=== PATIENT | male | born 1945 | race Caucasian/White ===

== ENCOUNTER 2022-04-13 16:20 | Inpatient (IN) | payer MEDICARE, OTHER ==
[2022-04-13 20:18] VITALS: BMI 39.6
[2022-04-13] MEDS ORDERED: Acetaminophen 325 MG Suppository PR PRN (20:29)
[2022-04-13] MEDS ORDERED: Ondansetron ODT 4 MG TAB SL PRN (20:30)
[2022-04-13] MEDS ORDERED: Ondansetron PF 4 MG/2 ML Vial IVP PRN (20:30)
[2022-04-13] MEDS ORDERED: Calcium Carbonate 500 MG ChewTAB PO PRN (20:31)
[2022-04-13] MEDS ORDERED: Loperamide HCl 2 MG CAP PO PRN ×2 (20:53)
[2022-04-13] MEDS ORDERED: Guaifenesin DM 100-10/5 ML UDCUP PO PRN (20:54)
[2022-04-13] MEDS ORDERED: Bisacodyl 10 MG SUPP PR PRN (20:54)
[2022-04-13] MEDS: Famotidine 20 MG TAB PO SCH (21:58)
[2022-04-13] MEDS: HYDROcodone/Acetaminophen 5/325 mg Tablet PO PRN (22:10)
[2022-04-14] MEDS: Levothyroxine Sodium 50 MCG TAB PO SCH (05:17)
[2022-04-14 06:18] LABS: SARS-CoV-2 NAA Rapid Test Not Detected (NotDetected)
[2022-04-14] MEDS: Enoxaparin Sodium 40 MG/0.4 ML SYRINGE SC SCH (08:49)
[2022-04-14] MEDS: Lisinopril 20 MG TAB PO SCH (08:50)
[2022-04-14] MEDS: Multivitamin W/ Minerals 1 TAB PO SCH (08:50)
[2022-04-14] MEDS: Ascorbic Acid 500 mg Chewable Tablet PO SCH (08:51)
[2022-04-14] MEDS: Amlodipine 10 MG TAB PO SCH (08:51)
[2022-04-14] MEDS: Famotidine 20 MG TAB PO SCH ×2 (08:51→20:58)
[2022-04-14] MEDS ORDERED: FLU VACC QS2022-23(65YR UP)/PF 240 MCG/0.7 ML SYRINGE IM ONE (09:00)
[2022-04-14] MEDS ORDERED: Cholecalciferol 1,000 UNITS (25 MCG) TAB PO SCH (09:00)
[2022-04-14] MEDS: HYDROcodone/Acetaminophen 5/325 mg Tablet PO PRN (10:03)
[2022-04-15] MEDS: Levothyroxine Sodium 50 MCG TAB PO SCH (05:32)
[2022-04-15] MEDS: Enoxaparin Sodium 40 MG/0.4 ML SYRINGE SC SCH (08:56)
[2022-04-15] MEDS: Ascorbic Acid 500 mg Chewable Tablet PO SCH (08:56)
[2022-04-15] MEDS: Multivitamin W/ Minerals 1 TAB PO SCH (08:56)
[2022-04-15] MEDS: Amlodipine 10 MG TAB PO SCH (08:56)
[2022-04-15] MEDS: Lisinopril 20 MG TAB PO SCH (08:57)
[2022-04-15] MEDS: Famotidine 20 MG TAB PO SCH ×2 (08:57→20:20)
[2022-04-15] MEDS: Cholecalciferol (Vitamin D3) 5,000 UNITS CAPSULE PO SCH (09:00)
[2022-04-15] MEDS: HYDROcodone/Acetaminophen 5/325 mg Tablet PO PRN ×2 (09:32→14:44)
[2022-04-16] MEDS: HYDROcodone/Acetaminophen 5/325 mg Tablet PO PRN ×3 (02:28→22:40)
[2022-04-16] MEDS: Levothyroxine Sodium 50 MCG TAB PO SCH (05:43)
[2022-04-16] MEDS: Enoxaparin Sodium 40 MG/0.4 ML SYRINGE SC SCH (08:45)
[2022-04-16] MEDS: Multivitamin W/ Minerals 1 TAB PO SCH (08:46)
[2022-04-16] MEDS: Amlodipine 10 MG TAB PO SCH (08:46)
[2022-04-16] MEDS: Lisinopril 20 MG TAB PO SCH (08:47)
[2022-04-16] MEDS: Famotidine 20 MG TAB PO SCH ×2 (08:47→20:19)
[2022-04-16] MEDS: Ascorbic Acid 500 mg Chewable Tablet PO SCH (08:47)
[2022-04-16] MEDS: Cholecalciferol (Vitamin D3) 5,000 UNITS CAPSULE PO SCH (08:48)
[2022-04-17] MEDS: Levothyroxine Sodium 50 MCG TAB PO SCH (05:32)
[2022-04-17] MEDS: Enoxaparin Sodium 40 MG/0.4 ML SYRINGE SC SCH (08:42)
[2022-04-17] MEDS: Lisinopril 20 MG TAB PO SCH (08:42)
[2022-04-17] MEDS: Amlodipine 10 MG TAB PO SCH (08:43)
[2022-04-17] MEDS: Famotidine 20 MG TAB PO SCH ×2 (08:43→19:51)
[2022-04-17] MEDS: Ascorbic Acid 500 mg Chewable Tablet PO SCH (08:44)
[2022-04-17] MEDS: Cholecalciferol (Vitamin D3) 5,000 UNITS CAPSULE PO SCH (08:44)
[2022-04-17] MEDS: Multivitamin W/ Minerals 1 TAB PO SCH (08:44)
[2022-04-17] MEDS: Senokot S 8.6-50 MG TAB PO PRN (08:59)
[2022-04-17] MEDS: HYDROcodone/Acetaminophen 5/325 mg Tablet PO PRN (19:56)
[2022-04-18] MEDS: Levothyroxine Sodium 50 MCG TAB PO SCH (04:44)
[2022-04-18] MEDS: Multivitamin W/ Minerals 1 TAB PO SCH (08:42)
[2022-04-18] MEDS: Amlodipine 10 MG TAB PO SCH (08:43)
[2022-04-18] MEDS: Cholecalciferol (Vitamin D3) 5,000 UNITS CAPSULE PO SCH (08:43)
[2022-04-18] MEDS: Ascorbic Acid 500 mg Chewable Tablet PO SCH (08:43)
[2022-04-18] MEDS: Lisinopril 20 MG TAB PO SCH (08:43)
[2022-04-18] MEDS: Enoxaparin Sodium 40 MG/0.4 ML SYRINGE SC SCH (08:44)
[2022-04-18] MEDS: Famotidine 20 MG TAB PO SCH ×2 (08:44→20:41)
[2022-04-18] MEDS: HYDROcodone/Acetaminophen 5/325 mg Tablet PO PRN (16:09)
[2022-04-19] MEDS: Levothyroxine Sodium 50 MCG TAB PO SCH (04:42)
[2022-04-19] MEDS: HYDROcodone/Acetaminophen 5/325 mg Tablet PO PRN ×3 (08:02→17:49)
[2022-04-19] MEDS: Ascorbic Acid 500 mg Chewable Tablet PO SCH (08:03)
[2022-04-19] MEDS: Lisinopril 20 MG TAB PO SCH (08:03)
[2022-04-19] MEDS: Cholecalciferol (Vitamin D3) 5,000 UNITS CAPSULE PO SCH (08:03)
[2022-04-19] MEDS: Multivitamin W/ Minerals 1 TAB PO SCH (08:04)
[2022-04-19] MEDS: Amlodipine 10 MG TAB PO SCH (08:04)
[2022-04-19] MEDS: Enoxaparin Sodium 40 MG/0.4 ML SYRINGE SC SCH (08:04)
[2022-04-19] MEDS: Famotidine 20 MG TAB PO SCH ×2 (08:04→21:14)
[2022-04-20] MEDS: Levothyroxine Sodium 50 MCG TAB PO SCH (05:07)
[2022-04-20] MEDS: Enoxaparin Sodium 40 MG/0.4 ML SYRINGE SC SCH (08:43)
[2022-04-20] MEDS: Lisinopril 20 MG TAB PO SCH (08:43)
[2022-04-20] MEDS: Multivitamin W/ Minerals 1 TAB PO SCH (08:44)
[2022-04-20] MEDS: Ascorbic Acid 500 mg Chewable Tablet PO SCH (08:44)
[2022-04-20] MEDS: Cholecalciferol (Vitamin D3) 5,000 UNITS CAPSULE PO SCH (08:44)
[2022-04-20] MEDS: Amlodipine 10 MG TAB PO SCH (08:44)
[2022-04-20] MEDS: Famotidine 20 MG TAB PO SCH ×2 (08:44→20:31)
[2022-04-20] MEDS: HYDROcodone/Acetaminophen 5/325 mg Tablet PO PRN (09:36)
[2022-04-21] MEDS: Levothyroxine Sodium 50 MCG TAB PO SCH (05:36)
[2022-04-21] MEDS: Ascorbic Acid 500 mg Chewable Tablet PO SCH (08:09)
[2022-04-21] MEDS: Enoxaparin Sodium 40 MG/0.4 ML SYRINGE SC SCH (08:09)
[2022-04-21] MEDS: Multivitamin W/ Minerals 1 TAB PO SCH (08:10)
[2022-04-21] MEDS: Amlodipine 10 MG TAB PO SCH (08:10)
[2022-04-21] MEDS: Lisinopril 20 MG TAB PO SCH (08:10)
[2022-04-21] MEDS: Famotidine 20 MG TAB PO SCH ×2 (08:10→20:15)
[2022-04-21] MEDS: Cholecalciferol (Vitamin D3) 5,000 UNITS CAPSULE PO SCH (08:11)
[2022-04-22] MEDS: Levothyroxine Sodium 50 MCG TAB PO SCH (05:27)
[2022-04-22] MEDS: Enoxaparin Sodium 40 MG/0.4 ML SYRINGE SC SCH (08:57)
[2022-04-22] MEDS: Ascorbic Acid 500 mg Chewable Tablet PO SCH (08:58)
[2022-04-22] MEDS: Cholecalciferol (Vitamin D3) 5,000 UNITS CAPSULE PO SCH (08:58)
[2022-04-22] MEDS: Amlodipine 10 MG TAB PO SCH (08:58)
[2022-04-22] MEDS: Lisinopril 20 MG TAB PO SCH (08:58)
[2022-04-22] MEDS: Multivitamin W/ Minerals 1 TAB PO SCH (08:59)
[2022-04-22] MEDS: Famotidine 20 MG TAB PO SCH ×2 (08:59→20:30)
[2022-04-23] MEDS: Levothyroxine Sodium 50 MCG TAB PO SCH (05:10)
[2022-04-23 06:13] LABS: Hemoglobin 9.8 g/dL (14.0-18.0); Platelet Count 277 thou/uL (130-400)
[2022-04-23] MEDS: Enoxaparin Sodium 40 MG/0.4 ML SYRINGE SC SCH (08:28)
[2022-04-23] MEDS: Famotidine 20 MG TAB PO SCH ×2 (08:29→20:31)
[2022-04-23] MEDS: Multivitamin W/ Minerals 1 TAB PO SCH (08:29)
[2022-04-23] MEDS: Cholecalciferol (Vitamin D3) 5,000 UNITS CAPSULE PO SCH (08:29)
[2022-04-23] MEDS: Amlodipine 10 MG TAB PO SCH (08:29)
[2022-04-23] MEDS: Ascorbic Acid 500 mg Chewable Tablet PO SCH (08:29)
[2022-04-23] MEDS: Lisinopril 20 MG TAB PO SCH (08:29)
[2022-04-24] MEDS: Levothyroxine Sodium 50 MCG TAB PO SCH (05:37)
[2022-04-24] MEDS: Bisacodyl 5 MG TAB PO PRN (08:08)
[2022-04-24] MEDS: Enoxaparin Sodium 40 MG/0.4 ML SYRINGE SC SCH (08:08)
[2022-04-24] MEDS: Multivitamin W/ Minerals 1 TAB PO SCH (08:09)
[2022-04-24] MEDS: Cholecalciferol (Vitamin D3) 5,000 UNITS CAPSULE PO SCH (08:09)
[2022-04-24] MEDS: Famotidine 20 MG TAB PO SCH ×2 (08:09→20:27)
[2022-04-24] MEDS: Amlodipine 10 MG TAB PO SCH (08:09)
[2022-04-24] MEDS: Ascorbic Acid 500 mg Chewable Tablet PO SCH (08:10)
[2022-04-24] MEDS: Lisinopril 20 MG TAB PO SCH (08:10)
[2022-04-25] MEDS: Levothyroxine Sodium 50 MCG TAB PO SCH (06:21)
[2022-04-25] MEDS: Famotidine 20 MG TAB PO SCH ×2 (08:31→21:27)
[2022-04-25] MEDS: Multivitamin W/ Minerals 1 TAB PO SCH (08:31)
[2022-04-25] MEDS: Ascorbic Acid 500 mg Chewable Tablet PO SCH (08:31)
[2022-04-25] MEDS: Cholecalciferol (Vitamin D3) 5,000 UNITS CAPSULE PO SCH (08:31)
[2022-04-25] MEDS: HYDROcodone/Acetaminophen 5/325 mg Tablet PO PRN (08:32)
[2022-04-25] MEDS: Enoxaparin Sodium 40 MG/0.4 ML SYRINGE SC SCH (08:33)
[2022-04-25] MEDS: Amlodipine 10 MG TAB PO SCH (08:34)
[2022-04-25] MEDS: Lisinopril 20 MG TAB PO SCH (08:34)
[2022-04-26] MEDS: Levothyroxine Sodium 50 MCG TAB PO SCH (05:31)
[2022-04-26] MEDS: Famotidine 20 MG TAB PO SCH ×2 (08:45→21:44)
[2022-04-26] MEDS: Multivitamin W/ Minerals 1 TAB PO SCH (08:45)
[2022-04-26] MEDS: Amlodipine 10 MG TAB PO SCH (08:45)
[2022-04-26] MEDS: Ascorbic Acid 500 mg Chewable Tablet PO SCH (08:45)
[2022-04-26] MEDS: Apixaban 5 MG TAB PO SCH ×2 (08:45→21:45)
[2022-04-26] MEDS: Lisinopril 20 MG TAB PO SCH (08:45)
[2022-04-26] MEDS: Cholecalciferol (Vitamin D3) 5,000 UNITS CAPSULE PO SCH (08:45)
[2022-04-26] MEDS: HYDROcodone/Acetaminophen 5/325 mg Tablet PO PRN (08:46)
[2022-04-26] MEDS ORDERED: Artificial Tear Sol 15 ML BOT EA EYE PRN (09:48)
[2022-04-26] MEDS ORDERED: Vit A,C & E/Lutein/Minerals Tablet PO SCH (10:15)
[2022-04-26] MEDS: Vit A,C & E/Lutein/Minerals Tablet PO SCH (21:44)
[2022-04-27] MEDS: Levothyroxine Sodium 50 MCG TAB PO SCH (05:02)
[2022-04-27] MEDS: Famotidine 20 MG TAB PO SCH ×2 (08:50→20:57)
[2022-04-27] MEDS: Vit A,C & E/Lutein/Minerals Tablet PO SCH ×2 (08:50→20:56)
[2022-04-27] MEDS: Ascorbic Acid 500 mg Chewable Tablet PO SCH (08:50)
[2022-04-27] MEDS: Lisinopril 20 MG TAB PO SCH (08:51)
[2022-04-27] MEDS: Amlodipine 10 MG TAB PO SCH (08:51)
[2022-04-27] MEDS: Multivitamin W/ Minerals 1 TAB PO SCH (08:52)
[2022-04-27] MEDS: Apixaban 5 MG TAB PO SCH ×2 (08:52→20:56)
[2022-04-27] MEDS: Cholecalciferol (Vitamin D3) 5,000 UNITS CAPSULE PO SCH (08:52)
[2022-04-27] MEDS: Acetaminophen 325 MG TAB PO PRN (08:56)
[2022-04-28] MEDS: Levothyroxine Sodium 50 MCG TAB PO SCH (05:31)
[2022-04-28] MEDS: Multivitamin W/ Minerals 1 TAB PO SCH (09:02)
[2022-04-28] MEDS: Vit A,C & E/Lutein/Minerals Tablet PO SCH ×2 (09:02→20:41)
[2022-04-28] MEDS: Lisinopril 20 MG TAB PO SCH (09:02)
[2022-04-28] MEDS: Amlodipine 10 MG TAB PO SCH (09:03)
[2022-04-28] MEDS: Ascorbic Acid 500 mg Chewable Tablet PO SCH (09:03)
[2022-04-28] MEDS: Famotidine 20 MG TAB PO SCH ×2 (09:03→20:41)
[2022-04-28] MEDS: Apixaban 5 MG TAB PO SCH ×2 (09:03→20:41)
[2022-04-28] MEDS: Cholecalciferol (Vitamin D3) 5,000 UNITS CAPSULE PO SCH (09:04)
[2022-04-29] MEDS: Levothyroxine Sodium 50 MCG TAB PO SCH (05:36)
[2022-04-29] MEDS: Multivitamin W/ Minerals 1 TAB PO SCH (08:15)
[2022-04-29] MEDS: Amlodipine 10 MG TAB PO SCH (08:15)
[2022-04-29] MEDS: Cholecalciferol (Vitamin D3) 5,000 UNITS CAPSULE PO SCH (08:15)
[2022-04-29] MEDS: Apixaban 5 MG TAB PO SCH ×2 (08:15→22:02)
[2022-04-29] MEDS: Ascorbic Acid 500 mg Chewable Tablet PO SCH (08:15)
[2022-04-29] MEDS: Famotidine 20 MG TAB PO SCH ×2 (08:16→22:02)
[2022-04-29] MEDS: Lisinopril 20 MG TAB PO SCH (08:16)
[2022-04-29] MEDS: Vit A,C & E/Lutein/Minerals Tablet PO SCH ×2 (08:24→22:01)
[2022-04-30 04:36] LABS: Hemoglobin 10.3 g/dL (14.0-18.0); Platelet Count 213 thou/uL (130-400)
[2022-04-30] MEDS: Levothyroxine Sodium 50 MCG TAB PO SCH (04:59)
[2022-04-30] MEDS: Multivitamin W/ Minerals 1 TAB PO SCH (09:29)
[2022-04-30] MEDS: Lisinopril 20 MG TAB PO SCH (09:29)
[2022-04-30] MEDS: Famotidine 20 MG TAB PO SCH ×2 (09:30→20:56)
[2022-04-30] MEDS: Vit A,C & E/Lutein/Minerals Tablet PO SCH ×2 (09:30→20:56)
[2022-04-30] MEDS: Amlodipine 10 MG TAB PO SCH (09:30)
[2022-04-30] MEDS: Apixaban 5 MG TAB PO SCH ×2 (09:31→20:56)
[2022-04-30] MEDS: Cholecalciferol (Vitamin D3) 5,000 UNITS CAPSULE PO SCH (09:31)
[2022-04-30] MEDS: Ascorbic Acid 500 mg Chewable Tablet PO SCH (09:33)
[2022-05-01] MEDS: Levothyroxine Sodium 50 MCG TAB PO SCH (06:03)
[2022-05-01] MEDS: Amlodipine 10 MG TAB PO SCH (08:52)
[2022-05-01] MEDS: Vit A,C & E/Lutein/Minerals Tablet PO SCH ×2 (08:52→20:47)
[2022-05-01] MEDS: Famotidine 20 MG TAB PO SCH ×2 (08:53→20:47)
[2022-05-01] MEDS: Multivitamin W/ Minerals 1 TAB PO SCH (08:53)
[2022-05-01] MEDS: Ascorbic Acid 500 mg Chewable Tablet PO SCH (08:53)
[2022-05-01] MEDS: Lisinopril 20 MG TAB PO SCH (08:53)
[2022-05-01] MEDS: Cholecalciferol (Vitamin D3) 5,000 UNITS CAPSULE PO SCH (08:54)
[2022-05-01] MEDS: Apixaban 5 MG TAB PO SCH ×2 (08:54→20:47)
[2022-05-02] MEDS: Levothyroxine Sodium 50 MCG TAB PO SCH (06:06)
[2022-05-02] MEDS: Famotidine 20 MG TAB PO SCH ×2 (09:50→20:55)
[2022-05-02] MEDS: Multivitamin W/ Minerals 1 TAB PO SCH (09:51)
[2022-05-02] MEDS: Cholecalciferol (Vitamin D3) 5,000 UNITS CAPSULE PO SCH (09:51)
[2022-05-02] MEDS: Lisinopril 20 MG TAB PO SCH (09:51)
[2022-05-02] MEDS: Ascorbic Acid 500 mg Chewable Tablet PO SCH (09:51)
[2022-05-02] MEDS: Apixaban 5 MG TAB PO SCH ×2 (09:51→20:55)
[2022-05-02] MEDS: Amlodipine 10 MG TAB PO SCH (09:51)
[2022-05-02] MEDS: Vit A,C & E/Lutein/Minerals Tablet PO SCH ×2 (09:52→20:55)
[2022-05-02] MEDS: HYDROcodone/Acetaminophen 5/325 mg Tablet PO PRN (11:25)
[2022-05-03] MEDS: Levothyroxine Sodium 50 MCG TAB PO SCH (05:17)
[2022-05-03] MEDS: Vit A,C & E/Lutein/Minerals Tablet PO SCH ×2 (08:21→21:24)
[2022-05-03] MEDS: Multivitamin W/ Minerals 1 TAB PO SCH (08:21)
[2022-05-03] MEDS: Apixaban 5 MG TAB PO SCH ×2 (08:21→21:24)
[2022-05-03] MEDS: Ascorbic Acid 500 mg Chewable Tablet PO SCH (08:21)
[2022-05-03] MEDS: Amlodipine 10 MG TAB PO SCH (08:22)
[2022-05-03] MEDS: Famotidine 20 MG TAB PO SCH ×2 (08:22→21:24)
[2022-05-03] MEDS: Lisinopril 20 MG TAB PO SCH (08:22)
[2022-05-03] MEDS: Cholecalciferol (Vitamin D3) 5,000 UNITS CAPSULE PO SCH (08:22)
[2022-05-03] MEDS: HYDROcodone/Acetaminophen 5/325 mg Tablet PO PRN (16:39)
[2022-05-04] MEDS: Levothyroxine Sodium 50 MCG TAB PO SCH (05:10)
[2022-05-04] MEDS: Vit A,C & E/Lutein/Minerals Tablet PO SCH ×2 (09:16→21:32)
[2022-05-04] MEDS: Famotidine 20 MG TAB PO SCH ×2 (09:17→21:32)
[2022-05-04] MEDS: Multivitamin W/ Minerals 1 TAB PO SCH (09:17)
[2022-05-04] MEDS: Amlodipine 10 MG TAB PO SCH (09:17)
[2022-05-04] MEDS: Apixaban 5 MG TAB PO SCH ×2 (09:17→21:32)
[2022-05-04] MEDS: Ascorbic Acid 500 mg Chewable Tablet PO SCH (09:17)
[2022-05-04] MEDS: Cholecalciferol (Vitamin D3) 5,000 UNITS CAPSULE PO SCH (09:18)
[2022-05-04] MEDS: Lisinopril 20 MG TAB PO SCH (09:18)
[2022-05-05] MEDS: Levothyroxine Sodium 50 MCG TAB PO SCH (05:06)
[2022-05-05] MEDS: Acetaminophen 325 MG TAB PO PRN (08:04)
[2022-05-05] MEDS: Cholecalciferol (Vitamin D3) 5,000 UNITS CAPSULE PO SCH (08:08)
[2022-05-05] MEDS: Apixaban 5 MG TAB PO SCH ×2 (08:08→21:34)
[2022-05-05] MEDS: Amlodipine 10 MG TAB PO SCH (08:08)
[2022-05-05] MEDS: Famotidine 20 MG TAB PO SCH ×2 (08:08→21:34)
[2022-05-05] MEDS: Vit A,C & E/Lutein/Minerals Tablet PO SCH ×2 (08:08→21:34)
[2022-05-05] MEDS: Lisinopril 20 MG TAB PO SCH (08:09)
[2022-05-05] MEDS: Ascorbic Acid 500 mg Chewable Tablet PO SCH (08:09)
[2022-05-05] MEDS: Multivitamin W/ Minerals 1 TAB PO SCH (08:10)
[2022-05-05] MEDS: Bisacodyl 5 MG TAB PO PRN (08:16)
[2022-05-06] MEDS: Levothyroxine Sodium 50 MCG TAB PO SCH (05:15)
[2022-05-06] MEDS: Amlodipine 10 MG TAB PO SCH (09:00)
[2022-05-06] MEDS: Famotidine 20 MG TAB PO SCH ×2 (09:01→21:40)
[2022-05-06] MEDS: Cholecalciferol (Vitamin D3) 5,000 UNITS CAPSULE PO SCH (09:01)
[2022-05-06] MEDS: Apixaban 5 MG TAB PO SCH ×2 (09:01→21:40)
[2022-05-06] MEDS: Vit A,C & E/Lutein/Minerals Tablet PO SCH ×2 (09:02→21:40)
[2022-05-06] MEDS: Ascorbic Acid 500 mg Chewable Tablet PO SCH (09:02)
[2022-05-06] MEDS: Lisinopril 20 MG TAB PO SCH (09:03)
[2022-05-06] MEDS: Multivitamin W/ Minerals 1 TAB PO SCH (09:04)
[2022-05-06] MEDS: HYDROcodone/Acetaminophen 5/325 mg Tablet PO PRN (09:57)
[2022-05-07] MEDS: Acetaminophen 325 MG TAB PO PRN (02:03)
[2022-05-07] MEDS: Levothyroxine Sodium 50 MCG TAB PO SCH (05:09)
[2022-05-07] MEDS: Famotidine 20 MG TAB PO SCH ×2 (08:33→20:54)
[2022-05-07] MEDS: Vit A,C & E/Lutein/Minerals Tablet PO SCH ×2 (08:33→20:54)
[2022-05-07] MEDS: Amlodipine 10 MG TAB PO SCH (08:33)
[2022-05-07] MEDS: Ascorbic Acid 500 mg Chewable Tablet PO SCH (08:34)
[2022-05-07] MEDS: Apixaban 5 MG TAB PO SCH ×2 (08:34→20:54)
[2022-05-07] MEDS: Cholecalciferol (Vitamin D3) 5,000 UNITS CAPSULE PO SCH (08:34)
[2022-05-07] MEDS: Lisinopril 20 MG TAB PO SCH (08:35)
[2022-05-07] MEDS: Multivitamin W/ Minerals 1 TAB PO SCH (08:36)
[2022-05-08] MEDS: Levothyroxine Sodium 50 MCG TAB PO SCH (05:04)
[2022-05-08] MEDS: Apixaban 5 MG TAB PO SCH ×2 (08:40→21:57)
[2022-05-08] MEDS: Famotidine 20 MG TAB PO SCH ×2 (08:41→21:57)
[2022-05-08] MEDS: Ascorbic Acid 500 mg Chewable Tablet PO SCH (08:41)
[2022-05-08] MEDS: Amlodipine 10 MG TAB PO SCH (08:42)
[2022-05-08] MEDS: Lisinopril 20 MG TAB PO SCH (08:42)
[2022-05-08] MEDS: Cholecalciferol (Vitamin D3) 5,000 UNITS CAPSULE PO SCH (08:43)
[2022-05-08] MEDS: Multivitamin W/ Minerals 1 TAB PO SCH (08:44)
[2022-05-08] MEDS: Vit A,C & E/Lutein/Minerals Tablet PO SCH ×2 (08:45→21:58)
[2022-05-08] MEDS: HYDROcodone/Acetaminophen 5/325 mg Tablet PO PRN (16:35)
[2022-05-09] MEDS: Levothyroxine Sodium 50 MCG TAB PO SCH (06:05)
[2022-05-09] MEDS: Apixaban 5 MG TAB PO SCH ×2 (10:25→20:48)
[2022-05-09] MEDS: Amlodipine 10 MG TAB PO SCH (10:25)
[2022-05-09] MEDS: Cholecalciferol (Vitamin D3) 5,000 UNITS CAPSULE PO SCH (10:26)
[2022-05-09] MEDS: Famotidine 20 MG TAB PO SCH ×2 (10:26→20:48)
[2022-05-09] MEDS: Lisinopril 20 MG TAB PO SCH (10:26)
[2022-05-09] MEDS: Multivitamin W/ Minerals 1 TAB PO SCH (10:26)
[2022-05-09] MEDS: Ascorbic Acid 500 mg Chewable Tablet PO SCH (10:27)
[2022-05-09] MEDS: Vit A,C & E/Lutein/Minerals Tablet PO SCH ×2 (10:30→20:47)
[2022-05-09] MEDS: HYDROcodone/Acetaminophen 5/325 mg Tablet PO PRN (12:28)
[2022-05-10] MEDS: Levothyroxine Sodium 50 MCG TAB PO SCH (06:30)
[2022-05-10] MEDS: Cholecalciferol (Vitamin D3) 5,000 UNITS CAPSULE PO SCH (08:22)
[2022-05-10] MEDS: Famotidine 20 MG TAB PO SCH ×2 (08:22→20:16)
[2022-05-10] MEDS: Lisinopril 20 MG TAB PO SCH (08:22)
[2022-05-10] MEDS: Ascorbic Acid 500 mg Chewable Tablet PO SCH (08:22)
[2022-05-10] MEDS: Apixaban 5 MG TAB PO SCH ×2 (08:22→20:16)
[2022-05-10] MEDS: Amlodipine 10 MG TAB PO SCH (08:22)
[2022-05-10] MEDS: Vit A,C & E/Lutein/Minerals Tablet PO SCH ×2 (08:27→20:18)
[2022-05-10] MEDS: Multivitamin W/ Minerals 1 TAB PO SCH (08:27)
[2022-05-11] MEDS: Acetaminophen 325 MG TAB PO PRN (01:45)
[2022-05-11 05:30] LABS: Hemoglobin 11.1 g/dL (14.0-18.0); Platelet Count 172 10x3/uL (130-400)
[2022-05-11] MEDS: Levothyroxine Sodium 50 MCG TAB PO SCH (06:05)
[2022-05-11] MEDS: Lisinopril 20 MG TAB PO SCH (09:18)
[2022-05-11] MEDS: Multivitamin W/ Minerals 1 TAB PO SCH (09:18)
[2022-05-11] MEDS: Amlodipine 10 MG TAB PO SCH (09:19)
[2022-05-11] MEDS: Cholecalciferol (Vitamin D3) 5,000 UNITS CAPSULE PO SCH (09:19)
[2022-05-11] MEDS: Famotidine 20 MG TAB PO SCH ×2 (09:19→20:26)
[2022-05-11] MEDS: Apixaban 5 MG TAB PO SCH ×2 (09:19→20:26)
[2022-05-11] MEDS: Ascorbic Acid 500 mg Chewable Tablet PO SCH (09:19)
[2022-05-11] MEDS: Vit A,C & E/Lutein/Minerals Tablet PO SCH ×2 (09:31→20:26)
[2022-05-12] MEDS: Levothyroxine Sodium 50 MCG TAB PO SCH (05:39)
[2022-05-12] MEDS: Famotidine 20 MG TAB PO SCH ×2 (09:48→21:57)
[2022-05-12] MEDS: Multivitamin W/ Minerals 1 TAB PO SCH (09:48)
[2022-05-12] MEDS: Cholecalciferol (Vitamin D3) 5,000 UNITS CAPSULE PO SCH (09:48)
[2022-05-12] MEDS: Apixaban 5 MG TAB PO SCH ×2 (09:50→21:57)
[2022-05-12] MEDS: Ascorbic Acid 500 mg Chewable Tablet PO SCH (09:50)
[2022-05-12] MEDS: Lisinopril 20 MG TAB PO SCH (09:50)
[2022-05-12] MEDS: Amlodipine 10 MG TAB PO SCH (09:51)
[2022-05-12] MEDS: Vit A,C & E/Lutein/Minerals Tablet PO SCH ×2 (10:00→21:57)
[2022-05-13] MEDS: Levothyroxine Sodium 50 MCG TAB PO SCH (05:10)
[2022-05-13] MEDS: Ascorbic Acid 500 mg Chewable Tablet PO SCH (09:28)
[2022-05-13] MEDS: Apixaban 5 MG TAB PO SCH ×2 (09:28→20:23)
[2022-05-13] MEDS: Amlodipine 10 MG TAB PO SCH (09:28)
[2022-05-13] MEDS: Cholecalciferol (Vitamin D3) 5,000 UNITS CAPSULE PO SCH (09:29)
[2022-05-13] MEDS: Famotidine 20 MG TAB PO SCH ×2 (09:29→20:23)
[2022-05-13] MEDS: Lisinopril 20 MG TAB PO SCH (09:30)
[2022-05-13] MEDS: Multivitamin W/ Minerals 1 TAB PO SCH (09:30)
[2022-05-13] MEDS: Vit A,C & E/Lutein/Minerals Tablet PO SCH ×2 (09:31→20:23)
[2022-05-13] MEDS: HYDROcodone/Acetaminophen 5/325 mg Tablet PO PRN (12:30)
[2022-05-13] MEDS: Acetaminophen 325 MG TAB PO PRN (16:20)
[2022-05-14] MEDS: Levothyroxine Sodium 50 MCG TAB PO SCH (05:23)
[2022-05-14] MEDS: Amlodipine 10 MG TAB PO SCH (08:48)
[2022-05-14] MEDS: Vit A,C & E/Lutein/Minerals Tablet PO SCH ×2 (08:48→20:44)
[2022-05-14] MEDS: Famotidine 20 MG TAB PO SCH ×2 (08:49→20:44)
[2022-05-14] MEDS: Ascorbic Acid 500 mg Chewable Tablet PO SCH (08:49)
[2022-05-14] MEDS: Cholecalciferol (Vitamin D3) 5,000 UNITS CAPSULE PO SCH (08:49)
[2022-05-14] MEDS: Multivitamin W/ Minerals 1 TAB PO SCH (08:50)
[2022-05-14] MEDS: Apixaban 5 MG TAB PO SCH ×2 (08:50→20:44)
[2022-05-14] MEDS: Lisinopril 20 MG TAB PO SCH (08:50)
[2022-05-15] MEDS: Levothyroxine Sodium 50 MCG TAB PO SCH (05:25)
[2022-05-15] MEDS: Vit A,C & E/Lutein/Minerals Tablet PO SCH ×2 (09:21→21:18)
[2022-05-15] MEDS: Multivitamin W/ Minerals 1 TAB PO SCH (09:21)
[2022-05-15] MEDS: Lisinopril 20 MG TAB PO SCH (09:21)
[2022-05-15] MEDS: Cholecalciferol (Vitamin D3) 5,000 UNITS CAPSULE PO SCH (09:21)
[2022-05-15] MEDS: Apixaban 5 MG TAB PO SCH ×2 (09:21→21:18)
[2022-05-15] MEDS: Famotidine 20 MG TAB PO SCH ×2 (09:21→21:18)
[2022-05-15] MEDS: Ascorbic Acid 500 mg Chewable Tablet PO SCH (09:22)
[2022-05-15] MEDS: Amlodipine 10 MG TAB PO SCH (09:24)
[2022-05-16] MEDS: Levothyroxine Sodium 50 MCG TAB PO SCH (05:23)
[2022-05-16] MEDS: Multivitamin W/ Minerals 1 TAB PO SCH (08:12)
[2022-05-16] MEDS: Lisinopril 20 MG TAB PO SCH (08:12)
[2022-05-16] MEDS: Famotidine 20 MG TAB PO SCH ×2 (08:12→20:22)
[2022-05-16] MEDS: Ascorbic Acid 500 mg Chewable Tablet PO SCH (08:12)
[2022-05-16] MEDS: Amlodipine 5 MG TAB PO SCH (08:13)
[2022-05-16] MEDS: Apixaban 5 MG TAB PO SCH ×2 (08:13→20:22)
[2022-05-16] MEDS: Cholecalciferol (Vitamin D3) 5,000 UNITS CAPSULE PO SCH (08:13)
[2022-05-16] MEDS: Vit A,C & E/Lutein/Minerals Tablet PO SCH ×2 (08:14→20:22)
[2022-05-17] MEDS: Levothyroxine Sodium 50 MCG TAB PO SCH (05:25)
[2022-05-17] MEDS: Vit A,C & E/Lutein/Minerals Tablet PO SCH ×2 (08:24→21:24)
[2022-05-17] MEDS: Multivitamin W/ Minerals 1 TAB PO SCH (08:24)
[2022-05-17] MEDS: Lisinopril 20 MG TAB PO SCH (08:24)
[2022-05-17] MEDS: Amlodipine 5 MG TAB PO SCH (08:25)
[2022-05-17] MEDS: Famotidine 20 MG TAB PO SCH ×2 (08:26→21:24)
[2022-05-17] MEDS: Ascorbic Acid 500 mg Chewable Tablet PO SCH (08:26)
[2022-05-17] MEDS: Apixaban 5 MG TAB PO SCH ×2 (08:26→21:24)
[2022-05-17] MEDS: Cholecalciferol (Vitamin D3) 5,000 UNITS CAPSULE PO SCH (08:27)
[2022-05-18 05:24] LABS: Hemoglobin 11.6 g/dL (14.0-18.0); Platelet Count 162 10x3/uL (130-400)
[2022-05-18] MEDS: Levothyroxine Sodium 50 MCG TAB PO SCH (05:40)
[2022-05-18] MEDS: Amlodipine 5 MG TAB PO SCH ×2 (08:42→08:43)
[2022-05-18] MEDS: Cholecalciferol (Vitamin D3) 5,000 UNITS CAPSULE PO SCH (08:42)
[2022-05-18] MEDS: Vit A,C & E/Lutein/Minerals Tablet PO SCH ×2 (08:42→20:58)
[2022-05-18] MEDS: Multivitamin W/ Minerals 1 TAB PO SCH (08:42)
[2022-05-18] MEDS: Lisinopril 20 MG TAB PO SCH (08:43)
[2022-05-18] MEDS: Apixaban 5 MG TAB PO SCH ×2 (08:44→20:58)
[2022-05-18] MEDS: Famotidine 20 MG TAB PO SCH ×2 (08:44→20:58)
[2022-05-18] MEDS: Ascorbic Acid 500 mg Chewable Tablet PO SCH (08:44)
[2022-05-19] MEDS: Levothyroxine Sodium 50 MCG TAB PO SCH (05:38)
[2022-05-19] MEDS: Amlodipine 5 MG TAB PO SCH (08:49)
[2022-05-19] MEDS: Famotidine 20 MG TAB PO SCH ×2 (08:49→20:14)
[2022-05-19] MEDS: Apixaban 5 MG TAB PO SCH ×2 (08:50→20:14)
[2022-05-19] MEDS: Vit A,C & E/Lutein/Minerals Tablet PO SCH ×2 (08:50→20:14)
[2022-05-19] MEDS: Senokot S 8.6-50 MG TAB PO PRN (08:50)
[2022-05-19] MEDS: Lisinopril 20 MG TAB PO SCH (08:50)
[2022-05-19] MEDS: Cholecalciferol (Vitamin D3) 5,000 UNITS CAPSULE PO SCH (08:50)
[2022-05-19] MEDS: Ascorbic Acid 500 mg Chewable Tablet PO SCH (08:50)
[2022-05-19] MEDS: Multivitamin W/ Minerals 1 TAB PO SCH (08:51)
[2022-05-20] MEDS: Levothyroxine Sodium 50 MCG TAB PO SCH (05:32)
[2022-05-20] MEDS: Vit A,C & E/Lutein/Minerals Tablet PO SCH ×2 (08:58→20:44)
[2022-05-20] MEDS: Ascorbic Acid 500 mg Chewable Tablet PO SCH (08:58)
[2022-05-20] MEDS: Lisinopril 20 MG TAB PO SCH (08:58)
[2022-05-20] MEDS: Cholecalciferol (Vitamin D3) 5,000 UNITS CAPSULE PO SCH (08:58)
[2022-05-20] MEDS: Apixaban 5 MG TAB PO SCH ×2 (08:59→20:44)
[2022-05-20] MEDS: Amlodipine 5 MG TAB PO SCH (08:59)
[2022-05-20] MEDS: Famotidine 20 MG TAB PO SCH ×2 (09:00→20:45)
[2022-05-20] MEDS: Multivitamin W/ Minerals 1 TAB PO SCH (09:00)
[2022-05-21] MEDS: Levothyroxine Sodium 50 MCG TAB PO SCH (05:32)
[2022-05-21] MEDS ORDERED: Amlodipine 5 MG TAB ONE (09:44)
[2022-05-21] MEDS: Amlodipine 5 MG TAB PO SCH (09:50)
[2022-05-21] MEDS: Apixaban 5 MG TAB PO SCH ×2 (09:50→20:54)
[2022-05-21] MEDS: Cholecalciferol (Vitamin D3) 5,000 UNITS CAPSULE PO SCH (09:51)
[2022-05-21] MEDS: Multivitamin W/ Minerals 1 TAB PO SCH (09:51)
[2022-05-21] MEDS: Lisinopril 20 MG TAB PO SCH (09:51)
[2022-05-21] MEDS: Ascorbic Acid 500 mg Chewable Tablet PO SCH (09:51)
[2022-05-21] MEDS: Famotidine 20 MG TAB PO SCH ×2 (09:51→20:54)
[2022-05-21] MEDS: Vit A,C & E/Lutein/Minerals Tablet PO SCH ×2 (09:51→20:54)
[2022-05-22] MEDS: Levothyroxine Sodium 50 MCG TAB PO SCH (05:37)
[2022-05-22] MEDS ORDERED: Amlodipine 5 MG TAB ONE (08:02)
[2022-05-22] MEDS: Ascorbic Acid 500 mg Chewable Tablet PO SCH (08:08)
[2022-05-22] MEDS: Multivitamin W/ Minerals 1 TAB PO SCH (08:08)
[2022-05-22] MEDS: Vit A,C & E/Lutein/Minerals Tablet PO SCH ×2 (08:08→20:19)
[2022-05-22] MEDS: Apixaban 5 MG TAB PO SCH ×2 (08:08→20:19)
[2022-05-22] MEDS: Famotidine 20 MG TAB PO SCH ×2 (08:08→20:19)
[2022-05-22] MEDS: Cholecalciferol (Vitamin D3) 5,000 UNITS CAPSULE PO SCH (08:08)
[2022-05-22] MEDS: Lisinopril 20 MG TAB PO SCH (08:09)
[2022-05-22] MEDS: Amlodipine 5 MG TAB PO SCH (08:09)
[2022-05-23] MEDS: Levothyroxine Sodium 50 MCG TAB PO SCH (05:26)
[2022-05-23 06:04] VITALS: TEMP 97.7
[2022-05-23] MEDS: Amlodipine 5 MG TAB PO SCH (09:37)
[2022-05-23] MEDS: Vit A,C & E/Lutein/Minerals Tablet PO SCH (09:37)
[2022-05-23 09:38] VITALS: BP 159/69
[2022-05-23] MEDS: Apixaban 5 MG TAB PO SCH (09:38)
[2022-05-23] MEDS: Ascorbic Acid 500 mg Chewable Tablet PO SCH (09:38)
[2022-05-23] MEDS: Multivitamin W/ Minerals 1 TAB PO SCH (09:38)
[2022-05-23] MEDS: Cholecalciferol (Vitamin D3) 5,000 UNITS CAPSULE PO SCH (09:38)
[2022-05-23] MEDS: Famotidine 20 MG TAB PO SCH (09:38)
[2022-05-23] MEDS: Lisinopril 20 MG TAB PO SCH (09:38)
== END 2022-05-23 14:15 | disposition home or self-care (01) | DRG 561 ==
LOC: BURMED 18:45
PROVIDERS: ADMIT Family Medicine; ATTEND Family Medicine
DX: Z47.81 Encounter for orthopedic aftercare following surgical amputation (principal); Z20.822 Contact with and (suspected) exposure to COVID-19; R53.81 Other malaise; E03.9 Hypothyroidism, unspecified; I48.91 Unspecified atrial fibrillation; E11.51 Type 2 diabetes mellitus with diabetic peripheral angiopathy without gangrene; I10 Essential (primary) hypertension; Z60.2 Problems related to living alone; G47.33 Obstructive sleep apnea (adult) (pediatric); Z98.49 Cataract extraction status, unspecified eye; Z88.8 Allergy status to other drugs, medicaments and biological substances; Z79.899 Other long term (current) drug therapy; Z79.890 Hormone replacement therapy
CPT/HCPCS: 36415; 36416; 82565; 85014; 85018; 85049; 87811; J1650; U0002

== ENCOUNTER 2023-08-03 16:20 | Inpatient (IN) | payer OTHER ==
[2023-08-03 22:11] VITALS: BMI 34.8
[2023-08-04] MEDS: Nystatin Powder 15 GM BOT TOP SCH (10:03)
[2023-08-04] MEDS: Ferrous Sulfate 325 MG TAB PO SCH (10:04)
[2023-08-04] MEDS: Tamsulosin HCl 0.4 MG CAP PO SCH (10:04)
[2023-08-04] MEDS: Multivitamin W/ Minerals 1 TAB PO SCH (10:04)
[2023-08-04] MEDS: Lisinopril 20 MG TAB PO SCH (10:04)
[2023-08-04] MEDS: Furosemide 20 MG TAB PO SCH (10:04)
[2023-08-04] MEDS: traZODone HCl 50 MG TAB PO SCH (22:19)
[2023-08-08 05:25] LABS: #Basophils 0.1 thou/uL (0.0-0.2); #Eosinphils 0.3 thou/uL (0.0-0.7); #Lymphocytes 0.9 thou/uL (1.20-3.40); #Monocytes 0.5 thou/uL (0.11-0.59); #Neutrophils 3.8 thou/uL (1.40-6.50); %Eosinophils 5.1 % (0.0-10.0); %Lymphocytes 15.9 % (21.0-51.0); %Monocytes 8.6 % (0.0-10.0); %Neutrophils 68.3 % (42.0-75.0); Hematocrit 29.2 % (42.0-52.0); Hemoglobin 8.8 g/dL (14.0-18.0); Mean Corpuscular Hemoglobin 24.2 pg (27.0-31.0); Mean Corpuscular Volume 80.9 fl (78.0-98.0); Mean Platelet Volume 7.5 fL (7.4-10.4); Platelet Count 187 10x3/uL (130-400); RBC Distribution Width 19.1 % (11.5-14.5); Red Blood Cell (RBC) Count 3.61 mill/uL (4.70-6.10); White Blood Cell (WBC) Count 5.5 10x3/uL (4.8-10.8)
[2023-08-08 05:34] LABS: Anion Gap 12 mmol/L (10-20); BUN (Urea Nitrogen) 35 mg/dL (8.4-25.7); Calc. Creatinine Clearance 80 mL/min (70-130); Calcium 9.1 mg/dL (7.8-10.44); Carbon Dioxide 27 mmol/L (23-31); Chloride 109 mmol/L (98-107); Estimated GFR 57; Glucose 131 mg/dL (83-110); Sodium 143 mmol/L (136-145)
[2023-08-08 05:56] LABS: Anisocytosis SLIGHT = 6-15 cells (100X) (0-5/hpf); Elliptocytes SLIGHT = 2-5 cells (100X) (0-1/hpf); Hypochromia SLIGHT = 6-15 cells (100X) (0-5/hpf); MDiff Complete? YES; Platelet Adequacy Comment Appears Adequate
[2023-08-13 06:29] LABS: Anion Gap 11 mmol/L (10-20); BUN (Urea Nitrogen) 28 mg/dL (8.4-25.7); Calc. Creatinine Clearance 117 mL/min (70-130); Carbon Dioxide 25 mmol/L (23-31); Chloride 107 mmol/L (98-107); Estimated GFR 89; Glucose 93 mg/dL (83-110); Potassium 4.4 mmol/L (3.5-5.1); Sodium 139 mmol/L (136-145)
[2023-08-13 07:09] LABS: #Basophils 0.1 thou/uL (0.0-0.2); #Eosinphils 0.3 thou/uL (0.0-0.7); #Lymphocytes 0.8 thou/uL (1.20-3.40); #Monocytes 0.5 thou/uL (0.11-0.59); #Neutrophils 3.9 thou/uL (1.40-6.50); %Eosinophils 4.7 % (0.0-10.0); %Lymphocytes 14.2 % (21.0-51.0); %Monocytes 8.7 % (0.0-10.0); %Neutrophils 70.4 % (42.0-75.0); Anisocytosis SLIGHT = 6-15 cells (100X) (0-5/hpf); Eosinophils 7 % (0-10); Hematocrit 28.2 % (42.0-52.0); Hemoglobin 8.4 g/dL (14.0-18.0); Hypochromia SLIGHT = 6-15 cells (100X) (0-5/hpf); Lymphocytes 13 % (21-51); MDiff Complete? YES; Mean Corpuscular HGB CONC 29.8 g/dL (32.0-36.0); Mean Corpuscular Hemoglobin 24.3 pg (27.0-31.0); Mean Corpuscular Volume 81.5 fl (78.0-98.0); Mean Platelet Volume 8.6 fL (7.4-10.4); Monocytes 7 % (0-10); Neutrophil 71 % (42-75); Platelet Count 200 10x3/uL (130-400); RBC Distribution Width 19.2 % (11.5-14.5); Red Blood Cell (RBC) Count 3.45 mill/uL (4.70-6.10); White Blood Cell (WBC) Count 5.5 10x3/uL (4.8-10.8)
[2023-08-15] MEDS: Acetaminophen 325 MG TAB PO PRN (12:45)
[2023-08-22] MEDS ORDERED: Acetaminophen 325 MG TAB PO PRN (16:03)
[2023-08-24 06:09] VITALS: TEMP 97.4
[2023-08-24 10:00] VITALS: BP 110/70
== END 2023-08-24 11:00 | disposition home or self-care (01) | DRG 948 ==
LOC: BURMED 21:58
PROVIDERS: ADMIT Family Medicine; ATTEND Family Medicine
DX: R53.81 Other malaise (principal); L97.919 Non-pressure chronic ulcer of unspecified part of right lower leg with unspecified severity; E11.9 Type 2 diabetes mellitus without complications; I10 Essential (primary) hypertension; E03.9 Hypothyroidism, unspecified; G47.33 Obstructive sleep apnea (adult) (pediatric); E11.51 Type 2 diabetes mellitus with diabetic peripheral angiopathy without gangrene; Z89.612 Acquired absence of left leg above knee; D64.9 Anemia, unspecified; R00.1 Bradycardia, unspecified; Z79.899 Other long term (current) drug therapy; I48.91 Unspecified atrial fibrillation; Z98.49 Cataract extraction status, unspecified eye; Z95.0 Presence of cardiac pacemaker; Z98.890 Other specified postprocedural states; I83.019 Varicose veins of right lower extremity with ulcer of unspecified site
CPT/HCPCS: 36415; 36416; 80048; 85025; 97602